=== PATIENT | female | born 1985 | race Caucasian/White ===

== ENCOUNTER → 2022-02-25 | Emergency (ER) | payer MEDICAID ==
[~2022-02-25] VITALS: Ht 175.3 cm; Wt 81.6 kg
[~2022-02-25] MED LIST: ACETAMINOPHEN 500 MG TABLET PO ONE; IBUP-1969 PO; IBUPROFEN 600 MG TABLET PO ONE; PSEU30TA36 PO
--- NOTE | 2022-02-25 16:14 | NUR ---
Pt brought by self, A&Ox4, pt presents to ER with intermittent headache, skin pink and warm, cap refill <3, VSS.
[2022-02-25 17:20] VITALS: BP_SYST 128
--- NOTE | 2022-02-25 22:14 | NUR ---
Patient to ER bed H2 to gown for evaluation. Side rails up.
[2022-02-25 22:20] VITALS: BP_SYST 106
--- NOTE | 2022-02-25 22:20 | NUR ---
Received report from ANDREA Chatman; assuming care of patient at this time.
--- NOTE | 2022-02-25 22:22 | NUR ---
First contact with this patient at this time. Patient A/Ox4, VSS, ambulatory, resp even and unlabored. Patient reports pain 0/10 at this time. Patient sitting upright in chair in harding comfortably. Nad noted at this time.
--- NOTE | 2022-02-25 22:45 | NUR ---
ER MD Martinez at bedside.
--- NOTE | 2022-02-25 23:08 | NUR ---
PT SEEN AND EXAMINE BY DR. LUNDBERG AND MEDICATED PER EMAR.
--- NOTE | 2022-02-25 23:32 | NUR ---
DC PT HOME AAOX4,NO SOB NOTED AND NOT IN ANY DISTRESS. DC INSTRUCTION AND PRESCRIPTION WERE GIVEN TO PT AND SHE VERBALIZED UNDERSTANDING
== END | disposition home or self-care (01) ==
LOC: SED 16:11
DX: J32.9 Chronic sinusitis, unspecified (principal); Z79.899 Other long term (current) drug therapy
CPT/HCPCS: 99282

== ENCOUNTER 2022-03-15 18:24 | Emergency (ER) | payer MEDICAID ==
[~2022-03-15] VITALS: Ht 154.9 cm; Wt 111.6 kg
[~2022-03-15 18:24] MED LIST changes: -ACETAMINOPHEN 500 MG TABLET PO ONE; -IBUPROFEN 600 MG TABLET PO ONE
[2022-03-15 18:25] VITALS: BP_SYST 123
[2022-03-15] MEDS ORDERED: IBUP-1969 PO (19:18)
[2022-03-15 20:19] VITALS: BP_SYST 123
== END 2022-03-15 20:19 | disposition home or self-care (01) ==
LOC: SED 18:24
DX: M54.12 Radiculopathy, cervical region (principal); R20.2 Paresthesia of skin; E11.9 Type 2 diabetes mellitus without complications; Z79.899 Other long term (current) drug therapy
CPT/HCPCS: 81025; 93005; 99282